=== PATIENT | male | born 1930 | race Caucasian/White ===

== ENCOUNTER → 2017-12-23 08:15 | Outpatient (CLI) | payer MEDICARE ==
[2013-03-23 01:05] VITALS: BMI 30.7
[~2017-12-23 08:15] MED LIST: CARTIA XT120 MG PO; DETROL LA4 MG PO; LOPRESSOR25 MG PO; NORCO 5/325 TAB1 TA1 PO; ZOCOR20 MG PO
== END | disposition home or self-care (01) ==
LOC: D.NM 08:15
DX: C61 Malignant neoplasm of prostate (principal)

== ENCOUNTER 2018-08-17 06:09 | Day surgery (SDC) | payer MEDICARE ==
[~2018-08-17 06:09] MED LIST changes: +CALCIUM 500 +1 EAC3 PO; +FUROSEMIDE20 MG PO; +KLOR-CON M2020 MEQ PO; +LIPITOR10 MG PO; +TOVIAZ8 MG PO
[2018-08-17 08:22] VITALS: BP 122/66; BMI 24.0
[2018-08-17 09:11] LABS: ANION GAP 13.3 mmol/L (8-16); CALCIUM 9.1 mg/dL (8.5-10.1); CARBON DIOXIDE 27.7 mmol/L (21.0-32.0); CREATININE - SERUM 1.6 mg/dL (0.6-1.3)
[2018-08-17 09:12] LABS: APTT 26.7 SECONDS (22.8-39.4); INR 1.05 (0.85-1.17); PROTIME 13.2 SECONDS (11.6-15.0)
[2018-08-17 09:39] LABS: BASOPHILS 0.2 % (0-2); EOSINOPHILS 1.7 % (0-7); HEMATOCRIT 33.1 % (42.0-54.0); HEMOGLOBIN 10.8 g/dL (13.5-17.5); IMMATURE GRANULOCYTES 0.2 % (0-5); LYMPHOCYTES 21.8 % (15-50); MCH 29.5 pg (26.0-34.0); MCHC 32.6 g/dL (31.0-37.0); MCV 90.4 fL (80.0-100.0); MEAN PLATELET VOLUME 10.5 fL (7.4-10.4); MONOCYTES 13.1 % (2-11); RBC 3.66 10x6/uL (4.20-6.10); RDW 13.7 % (11.5-14.5); WBC 5.4 10x3/uL (4.8-10.8)
[2018-08-17 09:40] LABS: PLATELET COUNT 267 10x3/uL (130-400)
--- NOTE | 2018-08-17 11:17 | OP ---
PATIENT NAME: SHIVANI COUGHLIN MEDICAL RECORD: [id number] :31 LOCATION:D.OPS ADMISSION DATE: SURGEON: ANGEL LUIS RENEE MD DATE OF OPERATION: 08/17/2018 SURGEON: Angel Luis Renee MD ANESTHESIA: TIVA by PRABHJOT Alvarez CRNA DIAGNOSES: Bladder outlet obstruction, prostate cancer being treated with Lupron injections. PROCEDURE: UroLift times 4 in box configuration. FINDINGS: Bladder neck contracture. ESTIMATED BLOOD LOSS: None. CLINICAL HISTORY: This is an 87-year-old male with prostate cancer diagnosed by Dr. Crum last year. I do not have the [place] grade of the cancer. When I first saw him, the PSA was 8.06. He had a metastatic workup which is negative for metastasis. It does show a large prostate. He has quite significant voiding symptoms including urinary frequency every 1-1/2 hours for which he is taking Toviaz. He also has nocturia times 2 to 4. There are episodes of urge incontinence as well as hesitancy and a very slow urinary flow. His postvoid residual is measured at 7. His IPSS was 21. Quality of life score was 5. Urinalysis was negative for any signs of infection. No rectal examination was done. He came for UroLift procedure. HE IS ALLERGIC TO ASPIRIN. He was given Ancef cannon fire direction specialist to the OR. DESCRIPTION OF PROCEDURE: The patient was given IV sedation. He was then placed into lithotomy position and prepped and draped. The UroLift scope was introduced. The patient's prostate was not obstructive, but the bladder neck was obstructive. No bladder tumors were seen. We placed 4 UroLift units in a box configuration around the bladder neck. These were placed all about 1.5 cm distal to the bladder neck. The anterior two were placed in the anterior lateral sulcus. The posterior two were placed at about the midline level. This opened up the bladder neck into a nice wide rectangular box. The area towards the verumontanum was not obstructive at all. At the end of the procedure, the patient's bladder was partly emptied through the cystoscope. We will check to see that he is able to void before sending him home today. I will see him in followup in 1 months' time. TRANSINT:[id number] Voice Confirmation ID: [id number] DOCUMENT ID: [id number] ANGEL LUIS RENEE MD at 1117 CC: [id number] DICTATION DATE: 08/17/18 1041 PEDAL ASSEMBLER: 08/17/18 1107 [address] [place] [id number] [place] [id number]
--- NOTE | 2018-08-17 16:01 | NUR ---
1210 IV DC'ED WITH CATH INTACT. DRESSING. Chong العلي R.N. 1225 DRESSED, AWAKE & ALERT. GIVEN DISCHARGE INFORMATION INCLUDING: MED REC, RTC APPT., [facility] OUTPT D/C INSTRUCTIONS, UROLIFT D/C INSTRUCTIONS, UROLIFT PAMPHLET, UROLIFT ID CARD. PT & VOICED UNDERSTANDING. TO PRIVATE CAR PER WHEELCHAIR BY VOLUNTEER. HOME WITH MRS. COUGHLIN. Chong العلي R.N.
== END 2018-08-17 12:25 | disposition home or self-care (01) ==
LOC: D.OPS 06:09 → D.PAN 08:45 → D.OPS 09:15 → D.PAN 10:30 → D.OPS 12:25
PROVIDERS: Anesthesiology; ATTEND Urology
DX: N40.1 Benign prostatic hyperplasia with lower urinary tract symptoms (principal); N13.8 Other obstructive and reflux uropathy; C61 Malignant neoplasm of prostate; N39.498 Other specified urinary incontinence; R35.0 Frequency of micturition; R39.11 Hesitancy of micturition; R35.1 Nocturia; R39.12 Poor urinary stream; Z88.6 Allergy status to analgesic agent; Z01.812 Encounter for preprocedural laboratory examination

== ENCOUNTER 2018-11-23 06:39 | Day surgery (SDC) | payer MEDICARE ==
[~2018-11-23] VITALS: Ht 188 cm; Wt 86.6 kg
[2018-11-23 07:22] LABS: BASOPHILS 0.4 % (0-2); HEMATOCRIT 36.9 % (42.0-54.0); HEMOGLOBIN 12.4 g/dL (13.5-17.5); IMMATURE GRANULOCYTES 0.1 % (0-5); LYMPHOCYTES 25.1 % (15-50); MCH 30.1 pg (26.0-34.0); MCHC 33.6 g/dL (31.0-37.0); MCV 89.6 fL (80.0-100.0); MEAN PLATELET VOLUME 10.4 fL (7.4-10.4); MONOCYTES 12.3 % (2-11); NEUTROPHILS 50.1 % (40-80); RBC 4.12 10x6/uL (4.20-6.10); RDW 13.6 % (11.5-14.5); WBC 6.7 10x3/uL (4.8-10.8)
[2018-11-23 07:28] LABS: PLATELET COUNT 211 10x3/uL (130-400)
[2018-11-23 07:30] LABS: ANION GAP 11.4 mmol/L (8-16); CALCIUM 9.4 mg/dL (8.5-10.1); CARBON DIOXIDE 28.7 mmol/L (21.0-32.0); CREATININE - SERUM 1.4 mg/dL (0.6-1.3); POTASSIUM - SERUM 4.1 mmol/L (3.5-5.1)
[2018-11-23 07:32] LABS: APTT 25.4 SECONDS (22.8-39.4); INR 1.04 (0.85-1.17); PROTIME 13.1 SECONDS (11.6-15.0)
[2018-11-23] MEDS ORDERED: CELEXA20 MG PO (07:36)
[2018-11-23 07:57] VITALS: BP 145/70; Ht 188 cm; Wt 86.6 kg
--- NOTE | 2018-11-23 10:56 | NUR ---
1055 PT PREFERS TO SLEEP, NODS TO QUESTIONS ASKED.
--- NOTE | 2018-11-23 11:10 | OP ---
PATIENT NAME: SHIVANI COUGHLIN MEDICAL RECORD: [id number] :31 LOCATION:D.OPS ADMISSION DATE: SURGEON: ANGEL LUIS RENEE MD DATE OF OPERATION: 11/23/2018 SURGEON: Angel Luis Renee MD ANESTHESIA: TIVA by Archana Jacobson CRNA. DIAGNOSIS: Urge urinary incontinence. PROCEDURE: Cystoscopy and intravesical Botox injection 100 units. FINDINGS: Wide open prostatic urethra and bladder neck post UroLift. Trabeculated bladder with some mucosal inflammation. No bladder tumors. Single ureteral orifices bilaterally. BLOOD LOSS: None. CLINICAL HISTORY: This is an 88-year-old male, who had the UroLift times 4 in a box configuration on . He has cancer of the prostate, which is being observed. He still has complaints of urge urinary incontinence. He is using Toviaz, which improved the symptoms slightly. It does give him problems with dry mouth and constipation. He comes today to have the cystoscopy and Botox injection of the bladder. HE IS ALLERGIC TO ASPIRIN. He was given Ancef client development consultant to the OR. DESCRIPTION OF PROCEDURE: The patient was given IV sedation. He was then placed in the lithotomy position and prepped and draped. A 21-Occitan cystoscope with 30-degree lens was used for visualization. The penile urethra shows no strictures. Prostatic urethra is absolutely wide open with no obstruction whatsoever. The bladder neck is also fully open. Going into the bladder, the bladder was mildly inflamed. No bladder tumors were seen. At 10 different locations, sparing the trigone and the ureteral orifices, we injected 1 cc of Botox solution in each location. Each cc has 10 units of Botox dissolved in it. Therefore, the patient has a total of 100 units of intravesical Botox given to him. I will see him in followup in 1 month's time. TRANSINT:[id number] Voice Confirmation ID: [id number] DOCUMENT ID: [id number] ANGEL LUIS RENEE MD at 1110 CC: [id number] DICTATION DATE: 11/23/18 1025 INDUSTRIAL ENGINEERING TECHNOLOGIST: 11/23/18 1038 REG [facility] [address] [place] [address]
--- NOTE | 2018-11-23 11:46 | NUR ---
1145 UP TO BR VOIDS LG AMT, CRITERIA MET FOR RELEASE HOME. IV DC'D WITH CATH INTACT GETTING DRESSED.
== END 2018-11-23 12:00 | disposition home or self-care (01) ==
LOC: D.OPS 06:39
PROVIDERS: Anesthesiology; ATTEND Urology
DX: N39.41 Urge incontinence (principal)

== ENCOUNTER → 2019-09-23 09:48 | Outpatient (CLI) | payer OTHER ==
[2018-11-23 07:57] VITALS: BMI 24.5
[~2019-09-23 09:48] MED LIST changes: +CELEXA20 MG PO
== END | disposition home or self-care (01) ==
LOC: D.HCCARDIO 09:48 → D.HCCECHO 10:00
PROVIDERS: ATTEND Internal Medicine Cardiovascular Disease
DX: I10 Essential (primary) hypertension (principal); I25.10 Atherosclerotic heart disease of native coronary artery without angina pectoris

== ENCOUNTER 2019-10-10 13:45 | Outpatient (CLI) | payer OTHER ==
[~2019-10-10] VITALS: Ht 188 cm; Wt 80.5 kg
--- NOTE | ~2019-10-10 | HEMODYNAMI ---
PATIENT:SHIVANI COUGHLIN MEDICAL RECORD: [id number] : 31 LOCATION:DSRIDEVI ADMISSION DATE: 10/10/19 Generatedon:10/10/201913:49 Patient name: SHIVANI COUGHLIN Patient #: [id number] SSN: [id number] : 1930 Date of study: 10/10/2019 Page: Of Hemodynamic Procedure Report Patient Data Patient Demographics Procedure consent was obtained First Name: SHIVANI Gender: Male Last Name: CED : 1930 [facility] Initial: AFTAB Age: 89 year(s) Patient #: [id number] Race: SSN: [id number] Additional ID: [id number] Contact details Address: [place] [address] State: [place] City: [place] Zip code: [address] Past Medical History Performed procedures and imaging results Date Procedure Procedure Results Comments 09/23/2019 Stress testing Positive->Intermediate with SPECT MPI risk Allergies Allergen Reaction Date Comments Reported Other allergy 10/10/2019 aspirin, salicylates Admission Admission Data Admission Date: 10/10/2019 Admission Time: 13:45 Arrival Date: 10/10/2019 Arrival Time: 0:00 Admit Source: Other Insurance Payor: Private health insurance [facility] #: [id number] Lab Results Lab Result Date: 10/10/2019 Lab Result Time: 0:00 Biochemistry Name Units Result Min Max BUN mg/dl 27 --(----)-* 7 18 Creatinine mg/dl 1.4 --(----)*- 0.6 1.3 eGFR ml/min 51 *-(----)-- 90 120 NONAFRICAN CBC Name Units Result Min Max Hematocrit % 39.3 -*(----)-- 42 54 Hemoglobin g/dl 12.8 -*(----)-- 13.5 17.5 Procedure Procedure Types Cath Procedure Diagnostic Procedure LHC LHC w/Coronaries Sedation Charges Moderate Sedation up to 15 minutes Peripheral Cath Diagnostic Procedure Abd/Extremity Aortagram Procedure Description Procedure Date Procedure Date: 10/10/2019 Procedure Start Time: 13:22 Procedure End Time: 13:47 Procedure Staff Name Function Rashawn Greene MD Performing Physician Greer Ceja RT Monitor Malia Freire RT Scrub Yonas Rodas RN Nurse Procedure Data Cath Procedure Fluoroscopy Diagnostic fluoroscopy Total fluoroscopy Time: 5.4 time: 5.4 min min Diagnostic fluoroscopy Total fluoroscopy dose: 886 dose: 886 mGy mGy Contrast Material Contrast Material Type Amount (ml) Isovue 370 85 Entry Location Entry Primary Successful Side Size Upsize Upsize Entry Closure Succes sful Closure Location (Fr) 1 (Fr) 2 (Fr) Remarks Device Remarks Femoral Right 5 Fr Exoseal artery Estimated blood loss: 5 ml Diagnostic catheters Device Type Used For End Catheter Placement MULTIPACK 3DRC 5Fr Procedure catheter MULTIPACK JL 4.0 5Fr Procedure catheter MULTIPACK Pigtail 5 Fr Procedure catheter Procedure Complications No complications Procedure Medications Medication Administration Route Dosage Oxygen etCO2 Nasal cannula 2 l/min Lidocaine 2% added to field 20 Heparin Flush Bag added to field 2 bags (1000units/500ml NS) 0.9% NaCl I.V. 100 ml/hr Versed I.V. 1 mg Fentanyl I.V. 50 mcg Hemodynamics Rest HGB: 12.8 (g/dl) Heart Rate: 70 (bpm) Pressure Samples Time Site Value (mmHg) Purpose Heart Use Rate(bpm) 13:39 LV 155/13,29 Snapshot 71 13:40 AO 153/75(107) Pullback 79 13:40 LV 144/14,21 Pullback 79 Gradients Valve Time Site 1 Site 2 Mean SEP/DFP Peak To Heart Use (mmHg) (sec/min) Peak Rate (mmHg) (bpm) Aortic 13:40 LV AO 0 10 0 79 144/14,21 153/75(107) Calculations Valve P-P Mean Valve Index Valve Source Name Gradient Area Flow (cm2) Aortic 0 0 0 0 Snapshots Pre Cath Intra NCS Post Cath Vital Signs Time Heart Resp SPO2 etCO2 NIBP (mmHg) Rhythm Pain Sedation Rate (ipm) (%) (mmHg) Status Level (bpm) 13:05:46 68 12 99 0 No Cuff NSR 0 (11) 10(A) , No pain 13:09:46 70 13 98 0 No Cuff NSR 0 (11) 10(A) , No pain 13:13:46 68 16 98 0 No Cuff NSR 0 (11) 10(A) , No pain 13:18:12 70 10 97 0 159/78(126) NSR 0 (11) 10(A) , No pain 13:22:40 70 15 98 17.1 159/83(118) NSR 0 (11) 10(A) , No pain 13:27:01 65 12 99 0 124/66(94) NSR 0 (11) 9(A) , No pain 13:31:21 64 10 100 0 133/65(96) NSR 0 (11) 9(A) , No pain 13:35:43 67 11 99 10.4 133/68(108) NSR 0 (11) 9(A) , No pain 13:40:54 70 14 99 0 149/77(111) NSR 0 (11) 9(A) , No pain 13:45:18 70 15 100 40.2 156/81(126) NSR 0 (11) 10(A) , No pain Medications Time Medication Route Dose Verified Delivered Reason Notes Eff ectiveness by by 13:14:01 Heparin Flush added 2 Rashawn Rashawn used for Bag to bags Jc Greene MD procedure (1000units/500ml field NS) 13:14:09 0.9% NaCl I.V. 100 Rashawn Buffie Per ml/hr Jc Rodas RN physician 13:14:46 Oxygen etCO2 2 Rashawn Buffie used for Nasal l/min Jc Rodas RN procedure cannula 13:14:54 Lidocaine 2% added 20ml Rashawn Rashawn for local to vial Jc Greene MD anesthetic field 13:19:20 Versed I.V. 1 mg Rashawn Buffie for Jc Rodas RN sedation 13:19:27 Fentanyl I.V. 50 Rashawn Buffie for mcg Jc Rodas RN sedation Procedure Log Time Note 12:23:05 Patient allergic to Other allergyaspirin, salicylates 12:34:19 Stress Test: yes; abnormal inferior 12:34:29 Alarms reviewed by R. N. 12:34:29 Sharps counted by scrub and verified by R.N. 12:34:34 Admit Source: Other 12:34:54 Procedure Status Elective Heart Cath (OP). 12:34:57 Time tracking: Regular hours (M-F 7:00 - 5:00) 12:35:02 Plan of Care:Hemodynamics will remain stable., Cardiac rhythm will remain stable., Comfort level will be maintained., Respiratory function will remain adequate., Patient/ family verbilizes understanding of procedure., Procedure tolerated without complication., Recovers from procedure without complications.. 12:35:11 H&P Date Dictated: 10/10/2019 Within 30 days and on chart.. 12:35:12 Pre-procedure instructions explained to patient. 12:35:13 Pre-op teaching completed and patient verbalized understanding. 12:35:15 Family in patients room. 12:35:17 Patient NPO since Midnight. 12:35:44 Informed consent obtained and on chart 12:35:49 Arrival Date: 10/10/2019 12:00:00 AM 12:36:21 Insurance Payor : Private health insurance 12:42:25 Malia Freire RT(R) sent for patient. Start room use. 12:50:37 Patient received from Pre/Post Procedure Room to CCL 1 Alert and oriented. Tansferred to table in Supine position. 12:50:39 Warm blankets applied, and susanna hugger turned on for patient comfort. 12:50:39 Correct patient and procedure confirmed by team. 12:50:40 ECG and BP/O2 sat monitors applied to patient. 13:04:57 Vital chart was started 13:04:58 Full Disclosure recording started 13:04:59 Baseline sample Acquired. 13:05:08 Is the patient allergic to Iodine/contrast media? No. 13:05:16 Was the patient premedicated? No 13:05:19 Is patient on blood thinner?No 13:05:33 Lab results completed and on chart. 13:06:04 Lab Result : Creatinine 1.4 mg/dl 13:06:04 Lab Result : BUN 27 mg/dl 13:06:05 Lab Result : Hemoglobin 12.8 g/dl 13:06:05 Lab Result : eGFR NONAFRICAN 51 ml/min 13:06:05 Lab Result : Hematocrit 39.3 % 13:06:18 Rhythm: sinus rhythm 13:06:33 Patient diabetic? No. 13:06:34 If diabetic: On Metformin? N/A 13:06:35 ----Pre-sedation anethsthesia assessment.---- 13:06:41 Previous problem with sedation/anesthesia? No ? 13:06:45 Snore? Yes 13:06:47 Sleep apnea? No 13:06:49 Deviated septum? No 13:06:50 Opens mouth fully? Yes 13:06:51 Sticks out tongue? Yes 13:06:53 Airway obstruction? No ? 13:06:57 Dentures? Yes IN TIGHT 13:07:02 Pre procedure: right dorsailis pedis pulse 1+ Palpable, but thready & weak; easily obliterated 13:07:04 Modified Zenon's test Ulnar < 7 seconds 13:07:06 Patient pain scale 0/10 ?. 13:07:15 IV patent on arrival in left antecubital with 0.9% NaCl at [facility]. 13:07:22 Right Radial & Right Groin area was prepped with chlora-prep and draped in sterile fashion 13:09:15 Risk of Mortality: 0.6 13:09:23 Risk of blood transfusion: 0.3 13:09:26 Risk of MARIPOSA: 5.2 13:09:31 Use device set Radial Dx or PCI 13:09:33 ACIST Syringe (36901) opened to sterile field. 13:09:33 Medline Cath Pack ([id number]) opened to sterile field. 13:09:34 Bag Decanter (2002S) opened to sterile field. 13:09:34 ACIST Hand Control (32062) opened to sterile field. 13:09:35 ACIST Manifold (10771) opened to sterile field. 13:09:36 MBrace Wrist Support ([id number]) opened to sterile field. 13:09:36 NEEDLE Cook 21G 4cm Radial (R56425) opened to sterile field. 13:09:38 EMERALD Guide Wire (292-496) opened to sterile field. 13:09:39 SHEATH 6FR RAIN (5187291) opened to sterile field. 13:14:01 Heparin Flush Bag (1000units/500ml NS) 2 bags added to field was administered by Rashawn Greene MD; used for procedure; Verbal order read back and verified. 13:14:09 0.9% NaCl 100 ml/hr I.V. was administered by Yonas Rodas RN; Per physician; Verbal order read back and verified. 13:14:46 Oxygen 2 l/min etCO2 Nasal cannula was administered by Yonas Rodas RN; used for procedure; Verbal order read back and verified. 13:14:54 Lidocaine 2% 20ml vial added to field was administered by Rashawn Greene MD; for local anesthetic; Verbal order read back and verified. 13:15:31 --------ALL STOP TIME OUT------ 13:15:31 Final Timeout: patient, procedure, and site verified with staff and physician. All members of the team are in agreement. 13:15:33 Right Radial & Right Groin site verified by team. 13:15:37 Fire Safety Assessment: A--An alcohol-based skin anteseptic being used preoperatively., C--Open oxygen or nitrous oxide is being used., D--An ESU, laser, or fiber-optic light is being used. 13:15:40 Physical assessment completed. ASA score P 2 - A patient with mild systemic disease as per Rashawn Greene MD. 13:15:43 3a) 45-59 Moderately reduced kidney function. 13:15:58 Maximum allowable contrast dose (3.7 X eGFR X 0.75)142 ml. 13:16:03 Sedation plan: IV Moderate Sedation Medication:Versed, Fentanyl 13:19:20 Versed 1 mg I.V. was administered by Yonas Rodas RN; for sedation; Verbal order read back and verified. 13:19:27 Fentanyl 50 mcg I.V. was administered by Yonas Rodas RN; for sedation; Verbal order read back and verified. 13:22:42 Procedure started. 13:22:48 Local anesthetic to right radial artery with Lidocaine 2% by Rashawn Greene MD.INITIAL ACCESS ONLY 13:24:55 UNABLE TO USE RADIAL GOING TO GROIN FOR ACCESS.. 13:25:01 Local anesthetic to right femoral artery with Lidocaine 2% by Rashawn Greene MD.ADDITIONAL ACCESS 13:28:00 Use device set Femoral Dx 13:28:01 SHEATH 5FR [place] (QIF410) opened to sterile field. 13:28:04 Medline Cath Pack ([id number]) opened to sterile field. 13:28:43 A 5 Fr sheath was inserted into the Right Femoral artery 13:29:39 A MULTIPACK 3DRC 5Fr catheter was advanced over the wire and used for Procedure. 13:31:08 RCA angiography performed. 13:31:18 Injector settings: Ml/sec: 3, Volume: 6, 13:31:30 Catheter exchanged over wire. 13:32:35 A MULTIPACK JL 4.0 5Fr catheter was advanced over the wire and used for Procedure. 13:34:15 LCA angiography performed. 13:34:20 Injector settings: Ml/sec: 3, Volume: 6, 13:35:10 ACCDominant side:Co-Dominant 13:37:01 Catheter exchanged over wire. 13:37:45 A MULTIPACK Pigtail 5 Fr catheter was advanced over the wire and used for Procedure. 13:38:22 LV gram done using DE [place] SANTOS 13:39:22 Injector settings: Ml/sec: 5, Volume: 15, 13:39:24 LV hemodynamics recorded. 13:39:40 EF : 60 % 13:40:31 Injector settings: Ml/sec: 10, Volume: 20, 13:41:08 Abdominal Aortagram was performed. 13:42:05 Catheter removed. 13:42:13 EXOSEAL 5Fr (EX500) opened to sterile field. 13:42:39 Sheath removed intact; hemostasis achieved with Exoseal to the Right Femoral artery. 13:42:46 Fluoroscopy time 05.40 minutes. 13:42:50 Fluoroscopy dose: 886 mGy 13:42:50 Flurop Dose total: 886 13:42:57 Dose Area Product 09766 mGy/cm. 13:43:02 Contrast amount:Isovue 370 85ml. 13:43:05 Maximum allowable dose exceeded? No. 13:43:36 Procedure ended.(Physican Out) 13:43:49 Post-op/insertion site Right Femoral artery dressed using a 4 x 4 and Tegaderm. 13:43:55 Post-op/insertion site Right Radial artery dressed using a Bandaid. 13:44:01 Post right femoral artery:stable, soft, clean and dry 13:44:03 Post Procedure Pulses reassessed and unchanged 13:44:07 Post procedure: right dorsailis pedis pulse 1+ Palpable, but thready & weak; easily obliterated. 13:44:12 Post-procedure physical assessment completed. ASA score P 2 - A patient with mild systemic disease as per Rashawn Greene MD. 13:44:15 Post procedure rhythm: unchanged. 13:44:18 Estimated blood loss: 5 ml 13:44:20 Post procedure instruction explained to patient.Patient verbalizes understanding. 13:44:21 Patient needs reinforcement of post procedure teaching. 13:44:44 Procedure type changed to Cath procedure, Diagnostic procedure, LHC, C w/Coronaries, Sedation Charges, Moderate Sedation up to 15 minutes, Peripheral Cath Diagnostic Procedure, Abd/Extremity, Aortagram 13:45:25 Procedure and supply charges have been captured, reviewed, submitted and are correct. 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 13:47:35 See physician's report for complete and final results. 13:47:38 Report given to Pre/Post Procedure Room. 13:47:41 Patient transfered to Pre/Post Procedure Room with Stretcher. 13:47:43 Procedure ended. 13:47:43 Full Disclosure recording stopped 13:47:49 End room use (Document Last) 13:48:10 End room use (Document Last) 13:48:33 End room use (Document Last) Device Usage Item Name Manufacture Quantity Catalog Hospital Part Current Minima l Lot# / Number Charge Number Stock Stock Serial# Code ACIST Acist 1 01657 972088 338025 922918 20 Syringe Medical (26602) Systems Inc Medline Medline 2 [id number] 789486 88472 670509 5 Cath Pack ([id number]) Bag Microtek 1 873579 77743 863533 5 Decanter Medical Inc. () ACIST Hand Acist 1 22334 478745 422873 967725 5 Control Medical (39101) Systems Inc ACIST Acist 1 31246 815766 589438 444326 5 Manifold Medical (37673) Systems Inc MBrace Advanced 1 140-0250-00 686650 09267 404506 5 Wrist Vascular Support Dynamics ([id number]) NEEDLE LiveLeaf Medical 1 V46500 122621 027627 981783 5 21G 4cm Radial (W09366) EMERALD Cardinal 1 381-280 862676 762255 330061 5 Guide Wire [facility] (488-811) SHEATH 6FR Cardinal 1 3146852 961260 1618450 132504 5 [facility] (2320508) SHEATH 5FR Terumo 1 EYE185 911925 350883 183238 5 [place] (WQY518) MULTIPACK Cardinal 1 460575 5 3DRC 5Fr Health catheter MULTIPACK Cardinal 1 918394 5 JL 4.0 5Fr Health catheter MULTIPACK Cardinal 1 931499 5 Pigtail 5 Health Fr catheter EXOSEAL 5Fr Cardinal 1 EX500 037157 905541 828612 10 (EX500) Health Signature Audit [place] Stage Time Signature Unsigned Intra-Procedure 10/10/2019 Greer Ceja 1:48:10 PM RT(R) Intra-Procedure 10/10/2019 Yonas Rodas RN 1:48:33 PM Intra-Procedure 10/10/2019 Rashawn Greene MD 1:49:21 PM [facility] [address] [place] [address]
[2019-10-10 12:29] VITALS: BP 169/81; Ht 188 cm; Wt 80.5 kg
[2019-10-10 12:55] LABS: HEMATOCRIT 39.3 % (42.0-54.0); HEMOGLOBIN 12.8 g/dL (13.5-17.5); LYMPHOCYTES 19.3 % (15-50); MCH 29.8 pg (26.0-34.0); MCHC 32.6 g/dL (31.0-37.0); MCV 91.6 fL (80.0-100.0); MEAN PLATELET VOLUME 10.3 fL (7.4-10.4); NEUTROPHILS 67.5 % (40-80); PLATELET COUNT 247 10x3/uL (130-400); RBC 4.29 10x6/uL (4.20-6.10); RDW 13.2 % (11.5-14.5); WBC 5.7 10x3/uL (4.8-10.8)
[2019-10-10 12:56] LABS: ANION GAP 12.5 mmol/L (8-16); CALCIUM 9.5 mg/dL (8.5-10.1); CARBON DIOXIDE 28.2 mmol/L (21.0-32.0); CHOL - HDL RATIO 2.3 ratio (2.3-4.9); CREATININE - SERUM 1.4 mg/dL (0.6-1.3); LDL-HDL RATIO 1.2 ratio (1.5-3.5); POTASSIUM - SERUM 4.7 mmol/L (3.5-5.1)
[~2019-10-10 13:45] MED LIST changes: +LIPITOR20 MG PO; +TYLENOL W/CODEI1 TAB PO
--- NOTE | 2019-10-10 14:00 | NUR ---
PT REC'D TO ROOM 4 VIA STRETCHER FROM SANITATION OFFICER. MONITORS ESTAB. PT DROWSY, AT BS. SEE SULFUR BURNER, NICOLASAM ON AND C/L IN REACH.
--- NOTE | 2019-10-10 14:04 | NUR ---
DR. GONZALEZ IN TO SEE PT, UPDATED . PLAN TO RETURN NEXT WEEK FOR PTCA.
--- NOTE | 2019-10-10 14:15 | NUR ---
R GROIN SITE SOFT, C/D/I, NO S/S BLEEDING OR HEMATOMA. PULSES WEAK PALP. VSS. NO SIGN OF DISTRESS. ALARMS ON AND C/L IN REACH.
--- NOTE | 2019-10-10 14:45 | NUR ---
R GROIN SITE SOFT, NO S/S BLEEDING OR HEMATOMA. VSS. PT RESTING QUIETLY, AWAKENS EASILY. ALARMS ON AND C/L IN REACH.
--- NOTE | 2019-10-10 15:00 | NUR ---
R GROIN SITE SOFT, C/D/I, NO S/S BLEEDING OR HEMATOMA. HOB ELEVATED SLIGHTLY, PT DENIES PAIN. PULSES PALP. AT BS.
--- NOTE | 2019-10-10 15:15 | NUR ---
R GROIN SITE SOFT, C/D/I. HOB UP. SANDWICH AND COLA PROVIDED PER PT REQUEST. VSS. ALARMS ON AND C/L IN REACH.
--- NOTE | 2019-10-10 15:30 | NUR ---
PT VOIDED 350ML CLEAR, YELLOW URINE IN URINAL. R GROIN SITE SOFT, C/D/I.
--- NOTE | 2019-10-10 15:45 | NUR ---
PT ATE ALL OF SANDWICH, NO N/V. VSS.
[2019-10-10] MEDS ORDERED: LUPRON IM (15:50)
--- NOTE | 2019-10-10 15:55 | NUR ---
R GROIN SITE SOFT, C/D/I, NO S/S BLEEDING OR HEMATOMA. PIV D/C'D INTACT, DSG APPLIED AND PT ALLOWED UP TO GET DRESSED WITH HELPING.
--- NOTE | 2019-10-10 16:05 | NUR ---
ALL DISCHARGE INSTRUCTIONS REVIEWED WITH PT AND HIS INCLUDING RESTRICTIONS, MEDS AND INSTRUCTIONS FOR COME BACK NEXT TUES. BOTH VERBALIZE UNDERSTANDING.
--- NOTE | 2019-10-10 16:15 | NUR ---
PT D/C'D VIA HIS OWN W/C TO PRIVATE VEHICLE. PT HAS ALL PAPERWORK AND BELONGINGS.
== END 2019-10-10 16:15 | disposition home or self-care (01) ==
LOC: D.CATH 13:45
PROVIDERS: ATTEND Internal Medicine Cardiovascular Disease
DX: I25.119 Atherosclerotic heart disease of native coronary artery with unspecified angina pectoris (principal); R94.39 Abnormal result of other cardiovascular function study; I10 Essential (primary) hypertension; J44.9 Chronic obstructive pulmonary disease, unspecified; K21.9 Gastro-esophageal reflux disease without esophagitis

== ENCOUNTER 2019-10-18 06:54 | Outpatient (CLI) | payer OTHER ==
[~2019-10-18] VITALS: Ht 188 cm; Wt 85.0 kg
--- NOTE | ~2019-10-18 | HEMODYNAMI ---
PATIENT:SHIVANI COUGHLIN MEDICAL RECORD: [id number] : 32 LOCATION:[facility] ADMISSION DATE: 10/18/19 Generatedon:10/18/201910:09 Patient name: SHIVANI COUGHLIN Patient #: [id number] SSN: [id number] : 1930 Date of study: 10/18/2019 Page: Of Hemodynamic Procedure Report Patient Data Patient Demographics Procedure consent was obtained First Name: SHIVANI Gender: Male Last Name: CED : 1930 [facility] Initial: AFTAB Age: 89 year(s) Patient #: [id number] Race: SSN: [id number] Additional ID: [id number] Contact details Address: [place] [address] State: [place] City: [place] Zip code: [address] Past Medical History Allergies Allergen Reaction Date Comments Reported Other allergy 10/10/2019 aspirin, salicylates Other allergy 10/18/2019 ASA, SALICYLATES Admission Admission Data Admission Date: 10/18/2019 Admission Time: 6:54 Arrival Date: 10/18/2019 Arrival Time: 0:00 Admit Source: Other Insurance Payor: Private health insurance [facility] #: [id number] Height (in.): 74 Height (cm.): 187.96 Lab Results Lab Result Date: 10/18/2019 Lab Result Time: 0:00 Biochemistry Name Units Result Min Max BUN mg/dl 24 --(----)-* 7 18 Creatinine mg/dl 1.4 --(----)*- 0.6 1.3 eGFR ml/min 51 *-(----)-- 90 120 NONAFRICAN CBC Name Units Result Min Max Hematocrit % 36 *-(----)-- 42 54 Hemoglobin g/dl 11.6 *-(----)-- 13.5 17.5 Procedure Procedure Types Cath Procedure Diagnostic Procedure Sedation Charges Moderate Sedation up to 30 minutes PCI Procedure PTCA PTCA Initial Hemochron ACT Test Procedure Description Procedure Date Procedure Date: 10/18/2019 Procedure Start Time: 9:24 Procedure End Time: 10:08 Procedure Staff Name Function Rashawn Greene MD Performing Physician Greer Ceja RT Monitor Malai Freire RT Scrub Yonas Rodas RN Nurse Procedure Data Cath Procedure Fluoroscopy Diagnostic fluoroscopy Total fluoroscopy Time: time: 11.4 min 11.4 min Diagnostic fluoroscopy Total fluoroscopy dose: 534 dose: 534 mGy mGy Contrast Material Contrast Material Type Amount (ml) Isovue 370 143 Entry Location Entry Primary Successful Side Size Upsize Upsize Entry Closure Succes sful Closure Location (Fr) 1 (Fr) 2 (Fr) Remarks Device Remarks Femoral Right 6 Fr 6 Fr artery Short Long Estimated blood loss: 10 ml Procedure Complications No complications Procedure Medications Medication Administration Route Dosage Oxygen etCO2 Nasal cannula 2 l/min Lidocaine 2% added to field 20 Heparin Flush Bag added to field 2 bags (1000units/500ml NS) 0.9% NaCl I.V. 100 ml/hr Versed I.V. 1 mg Fentanyl I.V. 50 mcg Versed I.V. 1 mg Fentanyl I.V. 50 mcg Heparin Bolus I.V. 8000 units Plavix P.O. 600 mg Hemodynamics Rest HGB: 11.6 (g/dl) Heart Rate: 64 (bpm) Snapshots Pre Cath Intra NCS Post Cath Vital Signs Time Heart Resp SPO2 etCO2 NIBP (mmHg) Rhythm Pain Sedation Rate (ipm) (%) (mmHg) Status Level (bpm) 9:04:37 67 14 100 0 192/92(153) NSR (Missing) 10(A) 9:10:03 72 25 99 0 152/102(119) NSR (Missing) 10(A) 9:14:17 81 24 97 0 166/79(135) NSR (Missing) 10(A) 9:18:31 65 15 99 0 155/91(114) NSR (Missing) 10(A) 9:22:45 67 14 98 0 164/83(140) NSR (Missing) 10(A) 9:27:07 63 11 100 0 127/67(101) NSR (Missing) 9(A) 9:31:17 63 11 100 32.9 135/68(92) NSR (Missing) 9(A) 9:35:31 60 13 100 10.4 117/62(95) NSR (Missing) 9(A) 9:39:38 67 15 100 16.4 112/60(85) NSR (Missing) 9(A) 9:44:41 67 14 100 20.2 135/71(113) NSR (Missing) 9(A) 9:48:49 67 12 100 1.4 153/80(129) NSR (Missing) 9(A) 9:53:05 68 15 100 0 155/78(120) NSR (Missing) 9(A) 9:57:17 68 17 100 0.7 164/87(131) NSR (Missing) 9(A) 10:01:33 69 21 100 0.7 171/86(112) NSR (Missing) 9(A) 10:05:53 71 14 100 35.1 174/85(113) NSR (Missing) 10(A) Medications Time Medication Route Dose Verified Delivered Reason Notes Effectiveness by by 9:02:43 Oxygen etCO2 2 Rashawn Buffie used for Nasal l/min Jc Rodas RN procedure cannula 9:03:49 Lidocaine 2% added 20ml Rashawn Rashawn for local to vial Jc Greene MD anesthetic field 9:03:54 Heparin Flush added 2 Rashawn Rashawn used for Bag to bags Jc Greene MD procedure (1000units/500ml field NS) 9:04:04 0.9% NaCl I.V. 100 Rashawn Buffie Per physician ml/hr Jc Rodas RN 9:26:12 Versed I.V. 1 mg Rashawn Buffie for sedation Jc Rodas RN 9:26:19 Fentanyl I.V. 50 Rashawn Buffie for sedation mcg Jc Rodas RN 9:31:53 Versed I.V. 1 mg Rashawn Buffie for sedation Jc Rodas RN 9:31:56 Fentanyl I.V. 50 Rashawn Buffie for sedation mcg Jc Rodas RN 9:34:24 Heparin Bolus I.V. 8000 Rashawn Buffie for verif ied units Jc Rodas RN anticoagulation with dr greene 10:06:57 Plavix P.O. 600 Rashawn Buffie for mg Jc Rodas RN antiplatelet therapy Procedure Log Time Note 8:29:41 Diagnostic Cath Status : Elective 8:30:08 Procedure Status PCI. 8:30:10 Yonas Rodas RN sent for patient. Start room use. 8:30:12 Time tracking: Regular hours (M-F 7:00 - 5:00) 8:30:17 Plan of Care:Hemodynamics will remain stable., Cardiac rhythm will sandy in stable., Comfort level will be maintained., Respiratory function will remain adequate., Patient/ family verbilizes understanding of procedure., Procedure tolerated without complication., Recovers from procedure without complications.. 8:38:44 Informed consent obtained and on chart 8:38:49 Arrival Date: 10/18/2019 12:00:00 AM 8:38:50 Admit Source: Other 8:40:03 Insurance Payor : Private health insurance 8:41:52 Patient Height : 74 inches 8:54:51 Patient received from Pre/Post Procedure Room to [facility] 3 Alert and orient ed. Tansferred to table in Supine position. 8:54:52 Warm blankets applied, and susanna hugger turned on for patient comfort. 8:54:52 Correct patient and procedure confirmed by team. 8:54:53 ECG and BP/O2 sat monitors applied to patient. 8:55:04 H&P Date Dictated: 10/18/2019 Within 30 days and on chart., New H&P dict ated by physician.. 8:55:06 Pre-procedure instructions explained to patient. 8:55:06 Pre-op teaching completed and patient verbalized understanding. 8:55:08 Family unavailable. 8:55:09 Patient NPO since Midnight. 8:55:19 Alarms reviewed by R. N. 8:55:19 Sharps counted by scrub and verified by R.N. 8:55:24 Stress Test: no; N/A ? 9:02:33 Vital chart was started 9:02:43 Oxygen 2 l/min etCO2 Nasal cannula was administered by Yonas Rodas RN; used for procedure; Verbal order read back and verified. 9:03:42 Lab Result : Creatinine 1.4 mg/dl 9:03:42 Lab Result : BUN 24 mg/dl 9:03:42 Lab Result : Hemoglobin 11.6 g/dl 9:03:42 Lab Result : eGFR NONAFRICAN 51 ml/min 9:03:42 Lab Result : Hematocrit 36 % 9:03:48 Full Disclosure recording started 9:03:49 Lidocaine 2% 20ml vial added to field was administered by Rashawn Greene MD ; for local anesthetic; Verbal order read back and verified. 9:03:54 Heparin Flush Bag (1000units/500ml NS) 2 bags added to field was admini stered by Rashawn Greene MD; used for procedure; Verbal order read back and verified. 9:04:04 0.9% NaCl 100 ml/hr I.V. was administered by Yonas Rodas RN; Per physic nolvia; Verbal order read back and verified. 9:04:10 Patient allergic to Other allergyASA, SALICYLATES 9:04:19 Is the patient allergic to Iodine/contrast media? No. 9:04:24 Was the patient premedicated? No 9:04:26 Is patient on blood thinner?No 9:04:28 Patient diabetic? No. 9:04:30 If diabetic: On Metformin? N/A 9:04:35 ----Pre-sedation anethsthesia assessment.---- 9:04:41 Previous problem with sedation/anesthesia? No ? 9:04:43 Snore? Unknown 9:04:45 Sleep apnea? Yes 9:04:46 Deviated septum? No 9:04:48 Opens mouth fully? Yes 9:04:50 Sticks out tongue? Yes 9:04:52 Airway obstruction? No ? 9:04:54 Dentures? No ? 9:04:57 Pre procedure: right dorsailis pedis pulse 1+ Palpable, but thready & w eak; easily obliterated 9:05:00 Patient pain scale 0/10 ?. 9:05:05 IV patent on arrival in left antecubital with 0.9% NaCl at O. 9:05:08 Lab results completed and on chart. 9:05:15 Right groin area was prepped with chlora-prep and draped in sterile fas hion 9:07:48 Risk of Mortality: 0.6. 9:07:51 Risk of blood transfusion: 1.0 9:07:54 Risk of MARIPOSA: 4.4 9:09:15 Rhythm: sinus rhythm 9:09:19 Baseline sample Acquired. 9:09:25 Use device set Femoral Dx 9:15:58 ACIST Syringe (26173) opened to sterile field. 9:15:59 Bag Decanter () opened to sterile field. 9:16:00 Medline Cath Pack ([id number]) opened to sterile field. 9:16:01 ACIST Hand Control (35255) opened to sterile field. 9:16:02 ACIST Manifold (02903) opened to sterile field. 9:16:12 EMERALD Guide Wire (502-938) opened to sterile field. 9:16:15 Use device set GREENE PCI 9:16:21 SHEATH 6FR Mesa (IQO125) opened to sterile field. 9:16:27 BMW 300cm Colona 2 J wire ([id number]) opened to sterile field. 9:16:28 INFLATOR Merit BasixCompak (WO8297) opened to sterile field. 9:16:29 TUBING High Pressure Extension Tubing (Jc) ([id number]) opened to steri le field. 9:18:04 --------ALL STOP TIME OUT------ 9:18:05 Final Timeout: patient, procedure, and site verified with staff and lashon bradley. All members of the team are in agreement. 9:18:07 Right groin site verified by team. 9:18:10 Fire Safety Assessment: A--An alcohol-based skin anteseptic being used preoperatively., C--Open oxygen or nitrous oxide is being used., D--An ESU, laser, or fiber-optic light is being used. 9:18:15 Physical assessment completed. ASA score P 2 - A patient with mild syst emic disease as per Rashawn Greene MD. 9:18:18 3a) 45-59 Moderately reduced kidney function. 9:18:22 Maximum allowable contrast dose (3.7 X eGFR X 0.75)142 ml. 9:18:26 Sedation plan: IV Moderate Sedation Medication:Versed, Fentanyl 9:24:13 Procedure started. 9:24:26 Local anesthetic to right femoral artery with Lidocaine 2% by Rashawn quinn MD.INITIAL ACCESS ONLY 9:25:32 A 6 Fr Short sheath was inserted into the Right Femoral artery 9:26:12 Versed 1 mg I.V. was administered by Yonas Rodas RN; for sedation; Verb al order read back and verified. 9:26:19 Fentanyl 50 mcg I.V. was administered by Yonas Rodas RN; for sedation; Verbal order read back and verified. 9:28:16 GUIDE 5FR EBU 3.75 catheter ([id number]) opened to sterile field. 9:28:22 Proceeding to intervention. 9:28:31 6 Fr EBU 3.75 guide catheter was inserted over the wire 9:30:45 Guide catheter removed. 9:31:37 SHEATH 6FR Destination (RSR01) opened to sterile field. 9:31:53 Versed 1 mg I.V. was administered by Yonas Rodas RN; for sedation; Verb al order read back and verified. 9:31:55 CHANGING 6FR SHORT SHEATH TO DESTINATION 6FR LONG SHEATH. 9:31:56 Fentanyl 50 mcg I.V. was administered by Yonas Rodas RN; for sedation; Verbal order read back and verified. 9:32:05 Sheath upsized to a 6 Fr Long. 9:32:41 6 Fr EBU 3.75 guide catheter was inserted over the wire 9:34:24 Heparin Bolus 8000 units I.V. was administered by Yonas Rodas RN; for anticoagulation; verified with dr greene Verbal order read back and verified. 9:36:19 LCA angiography performed. 9:39:04 BMW 300 wire advanced. 9:39:07 Wire advanced across lesion. 9:40:00 Pre PCI Site: [place] pLAD has 80% stenosis. 9:44:09 UNABLE TO ADVANCE BMW 300 WIRE ACROSS LESION. 9:44:39 Wire removed. 9:47:09 Asahi Minamo 300cm wire opened to sterile field. 9:47:46 MINAMO 300 wire advanced. 9:53:55 Wire advanced across lesion. 9:56:45 -ADVANC ED 9:59:37 Place stent Inflation Number: 1 A INTEGRITY RX 3.0 x 15 stent ([id number]) was prepped and advanced across the Prox LAD1 . The stent was deployed at 12 ELPIDIO for 0:00 (min:sec) . 10:01:08 Stent catheter was removed intact over wire. 10:01:09 Wire removed. 10:01:09 Guide catheter removed. 10:02:25 EXOSEAL 6Fr (EX600) opened to sterile field. 10:02:32 Fluoroscopy time 11.40 minutes. 10:02:38 Flurop Dose total: 534 10::38 Fluoroscopy dose: 534 mGy 10:02:44 Dose Area Product 71763 mGy/cm. 10:04:31 Contrast amount:Isovue 370 143ml. 10:04:33 Maximum allowable dose exceeded? Yes. 10:04:34 Procedure ended.(Physican Out) 10:05:37 Post-op/insertion site Right Femoral artery dressed using a 4 x 4 and Tegaderm. 10:05:46 Post right femoral artery:stable, soft, clean and dry 10:05:49 Post Procedure Pulses reassessed and unchanged 10:05:52 Post procedure: right dorsailis pedis pulse 1+ Palpable, but thready & weak; easily obliterated. 10:05:56 Post-procedure physical assessment completed. ASA score P 2 - A patient with mild systemic disease as per Rashawn Greene MD. 10:05:59 Post procedure rhythm: unchanged. 10:06:02 Estimated blood loss: 10 ml 10:06:03 Post procedure instruction explained to patient.Patient verbalizes understanding. 10:06:05 Patient needs reinforcement of post procedure teaching. 10:06:19 Procedure type changed to Cath procedure, Diagnostic procedure, Sedatio n Charges, Moderate Sedation up to 30 minutes, PCI procedure, PTCA, PTCA Initial, Hemochron ACT Test 10:06:46 ACT drawn and resulted at 300 seconds. (normal therapeutic range 180-24 0 seconds). 10:06:57 Plavix 600 mg P.O. was administered by Yonas Rodas RN; for antiplatelet therapy; Verbal order read back and verified. 10:07:43 Procedure and supply charges have been captured, reviewed, submitted an d are correct. 10:07:47 Procedure Complication : No complications 10:07:49 Vital chart was stopped 10:07:51 [facility] Findings: MVD- PCI performed (see procedure note) 10:07:53 Operative report dictated upon procedure completion. 10:07:53 See physician's report for complete and final results. 10:07:55 Report given to Pre/Post Procedure Room. 10:07:59 Patient transfered to Pre/Post Procedure Room with Stretcher. 10:08:01 Procedure ended. 10:08:01 Full Disclosure recording stopped 10:08:10 ACC-PCI Only Patient was given prescriptions, or instructed by Rashawn Greene MD to start/continue the following medications upon discharge: Plavix 10:08:11 End room use (Document Last) 10:08:46 End room use (Document Last) 10:09:01 End room use (Document Last) Intervention Summary Intervention Notes Time ActionType Lesion and Equipment Action# Pressure Duration Attributes Used 9:59:[address] Place stent Prox LAD1 INTEGRITY RX 1 12 00:00 3.0 x 15 stent ([id number]) Device Usage Item Name Manufacture Quantity Catalog Hospital Part Current Minima l Lot# / Number Charge Number Stock Stock Serial# Code ACIST Acist 1 14862 060062 446218 627173 20 Syringe Medical (03922) Systems Inc Bag Decanter Microtek 1 2002S 320262 37320 538593 5 (2001S) Medical Inc. Medline Cath Medline 1 [id number] 397522 34402 887007 5 Pack ([id number]) ACIST Hand Acist 1 23116 076979 953444 972774 5 Control Medical (78255) Systems Inc ACIST Acist 1 34166 974701 721854 127292 5 Manifold Medical (74731) Systems Inc EMERALD Cardinal 1 502-455 918471 813264 269017 5 Guide Wire [facility] (502-455) SHEATH 6FR Terumo 1 [id number] 025685 222899 211267 40 Mesa (TEB059) BMW 300cm Louis 1 [id number] 278118 614177 004232 5 Colona 2 Vascular J wire ([id number]) INFLATOR Merit 1 MA1314 753025 424505 061829 15 Merit Medical BasixCompak (KT8363) TUBING High Merit 1 [id number] 218292 86752 465088 10 Pressure Medical Extension Tubing (Jc) ([id number]) GUIDE 5FR Medtronic 1 [id number] 725943 589137 680774 1 EBU 3.75 catheter ([id number]) SHEATH 6FR Terumo 1 RSR01 234407 95820 590806 5 Destination (RSR01) Josh Moreno Intecc 1 [id number] 610548 4634077 648423 0 300cm wire INTEGRITY RX Medtronic 1 [id number] 266557 371992 005950 5 [id number] 3.0 x 15 stent ([id number]) EXOSEAL 6Fr Cardinal 1 EX600 937096 179247 418607 10 (EX600) Health Signature Audit [place] Stage Time Signature Unsigned Intra-Procedure 10/18/2019 Greer Ceja 10:08:46 AM RT(R) Intra-Procedure 10/18/2019 Yonas Rodas RN 10:09:01 AM Intra-Procedure 10/18/2019 Rashawn Greene MD 10:09:23 AM [facility] [address] [place] [address]
[~2019-10-18 06:54] MED LIST changes: +LUPRON IM
[2019-10-18 08:36] LABS: BASOPHILS 0.6 % (0-2); EOSINOPHILS 5.4 % (0-7); HEMOGLOBIN 11.6 g/dL (13.5-17.5); IMMATURE GRANULOCYTES 0.2 % (0-5); LYMPHOCYTES 22.8 % (15-50); MCH 29.6 pg (26.0-34.0); MCHC 32.2 g/dL (31.0-37.0); MCV 91.8 fL (80.0-100.0); MEAN PLATELET VOLUME 9.9 fL (7.4-10.4); MONOCYTES 13.3 % (2-11); NEUTROPHILS 57.7 % (40-80); PLATELET COUNT 270 10x3/uL (130-400); RBC 3.92 10x6/uL (4.20-6.10); RDW 13.6 % (11.5-14.5)
[2019-10-18 08:40] VITALS: BP 163/62; Ht 188 cm; Wt 85.0 kg
[2019-10-18 08:50] LABS: ANION GAP 9.9 mmol/L (8-16); CALCIUM 9.2 mg/dL (8.5-10.1); CARBON DIOXIDE 28.1 mmol/L (21.0-32.0); CREATININE - SERUM 1.4 mg/dL (0.6-1.3)
--- NOTE | 2019-10-18 10:20 | NUR ---
PT REC'D TO ROOM 9 VIA STRETCHER, FROM SWAHILI TEACHER. MONITORS ESTAB, AT BS. SEE CABLE INSTALLATION MANAGER. ALARMS ON AND C/L IN REACH.
[2019-10-18] MEDS ORDERED: PLAVIX75 MG PO (10:25)
[2019-10-18] MEDS ORDERED: BAYER CHEWABLE81 MG PO (10:25)
--- NOTE | 2019-10-18 10:35 | NUR ---
R GROIN SITE SOFT, NO S/S BLEEDING OR SWELLING. VSS. R LEG/FOOT WARM WITH PALP PULSES. PT RESTING QUIETLY, AT BS. ALARMS ON AND C/L IN REACH.
--- NOTE | 2019-10-18 11:05 | NUR ---
R GROIN SITE C/D/I, NO S/S BLEEDING OR SWELLING. PULSES PALP, VSS.
--- NOTE | 2019-10-18 11:20 | NUR ---
R GROIN SITE SOFT, NO S/S BLEEDING OR SWELLING. PT RESTING QUIETLY, R LEG/FOOT WARM WITH PALP PULSES.
--- NOTE | 2019-10-18 11:50 | NUR ---
R GROIN SITE SOFT, C/D/I, NO S/S BLEEDING OR HEMATOMA. VSS, PT RESTING QUIETLY, AT BS. ALARMS ON AND C/L IN REACH.
--- NOTE | 2019-10-18 12:15 | NUR ---
PT RESTING QUIETLY, R GROIN SOFT, NO S/S BLEEDING OR HEMATOMA. VSS. ALARMS ON AND C/L IN REACH.
--- NOTE | 2019-10-18 12:35 | NUR ---
DR. GONZALEZ IN TO TALK WITH PT AND .
--- NOTE | 2019-10-18 12:45 | NUR ---
PT VOIDED 400 ML CLEAR, YELLOW URINE IN URINAL.
--- NOTE | 2019-10-18 13:00 | NUR ---
R GROIN SITE SOFT, C/D/I. HOB ELEVATED. SANDWICH TRAY AND COLA PROVIDED WITH ASSISTING. ALARMS ON AND C/L IN REACH.
--- NOTE | 2019-10-18 13:15 | NUR ---
R GROIN SITE SOFT, C/D/I. R LEG/FOOT WARM WITH PALP PULSES. PT DENIES NEEDS. VSS. C/L IN REACH.
--- NOTE | 2019-10-18 13:31 | NUR ---
[facility] PRESCRIPTION CALLED IN TO [facility] PER PT REQUEST. PT SITTING UP EATING. NO DIFFICULTIES. ALARMS ON AND C/L IN REACH.
--- NOTE | 2019-10-18 13:50 | NUR ---
R GROIN SITE SOFT, NO S/S BLEEDING OR HEMATOMA. PIV D/C'D INTACT - DSG WITH PAPER TAPE APPLIED. PT ALLOWED UP TO GET DRESSED WITH ASSISTING.
--- NOTE | 2019-10-18 13:55 | NUR ---
ALL DISCHARGE INSTRUCTIONS REVIEWED WITH PT AND - INCLUDING NEW MEDICATION, RESTRICTIONS AND F/U APPT. UNDERSTANDING VERBALIZED.
--- NOTE | 2019-10-18 14:00 | NUR ---
PT DISCHARGED VIA WC TO PRIVATE VEHICLE WITH ALL BELONGINGS AND PAPER WORK.
== END 2019-10-18 14:00 | disposition home or self-care (01) ==
LOC: D.CATH 06:54
PROVIDERS: ATTEND Internal Medicine Cardiovascular Disease
DX: I25.119 Atherosclerotic heart disease of native coronary artery with unspecified angina pectoris (principal); R94.39 Abnormal result of other cardiovascular function study; I10 Essential (primary) hypertension; J44.9 Chronic obstructive pulmonary disease, unspecified; K21.9 Gastro-esophageal reflux disease without esophagitis

== ENCOUNTER 2020-08-20 15:23 | Emergency (ER) | payer SELFPAY ==
[~2020-08-20] VITALS: Ht 188 cm; Wt 61.4 kg
[~2020-08-20 15:23] MED LIST changes: +BAYER CHEWABLE81 MG PO; +PLAVIX75 MG PO
[2020-08-20 15:36] VITALS: BP 133/81; Ht 188 cm; Wt 61.4 kg
[2020-08-20 16:55] LABS: BASOPHILS 0.3 % (0-2); EOSINOPHILS 5.4 % (0-7); HEMATOCRIT 27.6 % (42.0-54.0); HEMOGLOBIN 8.7 g/dL (13.5-17.5); LYMPHOCYTE ABS# 0.83 10x3/uL (1.32-3.57); LYMPHOCYTES 24.9 % (15-50); MCH 27.1 pg (26.0-34.0); MCHC 31.5 g/dL (31.0-37.0); MEAN PLATELET VOLUME 9.9 fL (7.4-10.4); MONOCYTES 17.4 % (2-11); NEUTROPHIL ABS# 1.73 10x3/uL (1.78-5.38); PLATELET COUNT 267 10x3/uL (130-400); RBC 3.21 10x6/uL (4.20-6.10); RDW 16.2 % (11.5-14.5); WBC 3.3 10x3/uL (4.8-10.8)
[2020-08-20 17:02] LABS: CALC OSMOLALITY 269 mosm/kg (275-300); CALCIUM 8.5 mg/dL (8.5-10.1); CARBON DIOXIDE 25.6 mmol/L (21.0-32.0); CHLORIDE - SERUM 104 mmol/L (98-107); GLUCOSE 81 mg/dL (74-106); POTASSIUM - SERUM 3.9 mmol/L (3.5-5.1); SODIUM 135 mmol/L (136-145); UREA NITROGEN 14 mg/dL (7-18); eGFR NON AFRICAN AMERICAN 75 mL/min (90-120)
[2020-08-20 17:03] LABS: APTT 28.2 SECONDS (22.8-39.4); INR 1.22 (0.85-1.17); PROTIME 14.3 SECONDS (11.6-15.0)
[2020-08-20 17:09] LABS: ALBUMIN 2.7 g/dL (3.4-5.0); ALKALINE PHOSPHATASE 107 U/L (30-120); ALT (SGPT) 10 U/L (10-68); BILIRUBIN - TOTAL 0.26 mg/dL (0.2-1.3)
== END 2020-08-20 17:50 | disposition home or self-care (01) ==
LOC: D.ER 15:23
PROVIDERS: Emergency Medicine
DX: D64.9 Anemia, unspecified (principal); I10 Essential (primary) hypertension; K21.9 Gastro-esophageal reflux disease without esophagitis; J44.9 Chronic obstructive pulmonary disease, unspecified